=== PATIENT | male | born 1965 | race Caucasian/White ===

== ENCOUNTER 2018-03-01 22:10 | Inpatient (IN) | payer MEDICAID ==
[~2018-03-01] VITALS: Ht 177.8 cm; Wt 77.1 kg
--- NOTE | ~2018-03-01 | OP ---
PATIENT NAME: SILVANA VELASQUEZ MEDICAL RECORD: [id number] :67 LOCATION:D[id number] ADMISSION DATE:03/01/18 SURGEON: ROWDY ADDISON MD DATE OF OPERATION: 03/03/2018 SURGEON: Rowdy Addison MD ANESTHESIA: General anesthesia by Dayanara Mijares CRNA. DIAGNOSIS: Left proximal ureteral 10-mm stone. PROCEDURES: Cystoscopy, left retrograde pyelogram, left ureteroscopy and holmium laser lithotripsy, left ureteral stone extraction, left ureteral stent insertion 6-Uruguayan x 26 cm with string attached. FINDINGS: A 10-mm left ureteral stone, which is radiodense. Obstructive lateral prostatic lobes. No bladder tumors. ESTIMATED BLOOD LOSS: Minimal. CLINICAL HISTORY: This is a 53-year-old male, who had left-sided renal colic 2 years ago. He went to [facility] and he left [facility]. About a week ago, he developed more left-sided flank pain. He has been in and out of [facility] and he leaves [facility]. On 03/01/2018, he went there again due to the flank pain. They did a drug screen on him and he was positive for marijuana and methamphetamines. When he was confronted with this, he left again [facility], but eventually returned due to his severe pain. He finally had a CT scan performed, which showed a left proximal ureteral stone. Since [place] has no urologist, he was transferred here. He was admitted for pain control. He was scheduled to have left ureteroscopy and stone extraction yesterday, but because of the being backed up, his surgery was rescheduled for today. A KUB shows the stone to be radiodense. He is not allergic to any medications. He was given Ancef solution consultant to the OR. DESCRIPTION OF PROCEDURE: The patient was given induction of general anesthesia. He was then placed in dorsal lithotomy position and prepped and draped. A 21-Uruguayan cystoscope with 30-degree lens was used for visualization. Penile urethra shows no strictures. Prostatic urethra showed some lateral lobe obstruction. Going into the bladder, he has single ureteral orifices on each side. No bladder tumors were seen. Fluoroscopy revealed the radiodensity at the level of the L3 transverse process. We performed a retrograde pyelogram to confirm this. An open-ended ureteral catheter was inserted into the left ureteral orifice and diluted contrast was injected. This confirmed the location of the stone. There was proximal hydronephrosis proximal to the stone. A Sensor wire was then inserted into the left renal pelvis. The open-ended ureteral catheter was then removed entirely and a 21-Uruguayan x 4-cm ureteral dilation balloon was inserted. The left ureteral orifice was dilated to 10 atmospheres for a few seconds and then the balloon was deflated and then the balloon was removed. We switched over to the rigid ureteroscope. Going up beside the wire, we saw the stone. A 0-tip 4-wire basket was placed around the stone and we tried to pull it down. We came to ureteral edema, which prevented the stone from moving. The stone was released from the basket and the ureteroscope was removed. The balloon dilator was replaced and put up to the level of the ureteral edema. The balloon was then inflated to 8 atmospheres of pressure. This showed a persistent narrowing at the level of the ureteral OPERATIVE REPORT [id number] SILVANA VELASQUEZ edema. We then had to increase the balloon pressure to 14 before the edema completely resolved. At this point, we then swapped back to the rigid ureteroscope. We again saw the stone under direct vision and again trapped the stone within the basket. We moved it down a little past the edema zone, but again it would not pass. We then released the basket again. The 550 laser fiber was introduced and the holmium laser was used to break the stone down into smaller pieces. The basket was then introduced again and we went back and forth to remove all the little stone pieces. At the end of the procedure, there was only a some small stone debris about 1 mm in size each left. There is a small ureteral tear from where we had dilated the ureter with the ureteral dilation balloon. This will heal over the stent. Once no large fragments were left, the wire was backloaded on to the cystoscope. Over the wire, we inserted the 6-Uruguayan x 26-cm ureteral stent. Once the stent was in correct position, the wire was entirely withdrawn. The distal end of the stent was pushed into the bladder using a pusher. The bladder was then emptied through the cystoscope and then the scope was removed. The string on the distal end of the stent is maintained. It hangs out of the patient's urethra. The patient was then awakened and brought to the recovery room. The patient will be going home tomorrow morning since it is now about 9 p.m. He will be going home with a prescription for [place] 5/325 times 20 tablets and Flomax. Since he lives in [place], I will leave him instructions to remove the stent by pulling on the string in 7-10 days. He will have followup in 1 month's time to review the stone analysis. TRANSINT:[id number] Voice Confirmation ID: [id number] DOCUMENT ID: [id number] ROWDY ADDISON MD at 2123 CC: [id number] DICTATION DATE: 03/03/182049 COATING MACHINE FEEDER: 03/03/182115 ADM IN [place] [id number] [place] [address]
[2018-03-01 23:31] VITALS: BP 130/81
[2018-03-02 01:12] VITALS: BP 154/97; BMI 24.4
[2018-03-02 04:54] LABS: BASOPHILS 0.3 % (0-2); EOSINOPHILS 1.5 % (0-7); HEMATOCRIT 44.4 % (42.0-54.0); HEMOGLOBIN 15.5 g/dL (13.5-17.5); IMMATURE GRANULOCYTES 0.3 % (0-5); MCH 30.6 pg (26.0-34.0); MCHC 34.9 g/dL (31.0-37.0); MCV 87.6 fL (80.0-100.0); MEAN PLATELET VOLUME 9.3 fL (7.4-10.4); MONOCYTES 10.2 % (2-11); NEUTROPHILS 65.7 % (40-80); PLATELET COUNT 271 10x3/uL (130-400); RBC 5.07 10x6/uL (4.20-6.10); RDW 12.8 % (11.5-14.5); WBC 11.8 10x3/uL (4.8-10.8)
[2018-03-02 05:07] VITALS: BP 147/98
[2018-03-02 05:18] LABS: ANION GAP 13.8 mmol/L (8-16); BILIRUBIN - TOTAL 0.46 mg/dL (0.2-1.3); CALCIUM 8.4 mg/dL (8.5-10.1); CARBON DIOXIDE 26.1 mmol/L (21.0-32.0); CREATININE - SERUM 1.8 mg/dL (0.6-1.3); POTASSIUM - SERUM 3.9 mmol/L (3.5-5.1); PROTEIN - SERUM 7.3 g/dL (6.4-8.2)
[2018-03-02 08:48] VITALS: BP 154/98
[2018-03-02 12:44] VITALS: Ht 177.8 cm; Wt 77.1 kg
[2018-03-02 14:51] LABS: APPEARANCE CLEAR (CLEAR); COLOR YELLOW (YELLOW)
[2018-03-02 14:52] LABS: BILIRUBIN NEGATIVE (NEGATIVE); GLUCOSE NEGATIVE (NEGATIVE); KETONE NEGATIVE (NEGATIVE); NITRITE NEGATIVE (NEGATIVE); PROTEIN TRACE mg/dL (NEGATIVE); SPECIFIC GRAVITY 1.015 (1.005-1.020); UROBILINOGEN NORMAL (NORMAL); WHITE CELLS - URINE 0-5 /hpf (0-5)
[2018-03-02 14:53] LABS: BACTERIA FEW /hpf (NONE SEEN)
[2018-03-02 15:26] VITALS: BP 150/98
[2018-03-02 16:43] VITALS: BP 154/96
[2018-03-02 21:15] VITALS: BP 158/107
[2018-03-03] VITALS (10 sets, daily range): BP systolic 134–162; BP diastolic 83–109
[2018-03-03 05:54] LABS: BASOPHILS 0.3 % (0-2); EOSINOPHILS 2.6 % (0-7); HEMATOCRIT 44.9 % (42.0-54.0); HEMOGLOBIN 15.6 g/dL (13.5-17.5); IMMATURE GRANULOCYTES 0.4 % (0-5); LYMPHOCYTES 35.7 % (15-50); MCH 30.6 pg (26.0-34.0); MCHC 34.7 g/dL (31.0-37.0); MEAN PLATELET VOLUME 9.2 fL (7.4-10.4); MONOCYTES 10.6 % (2-11); NEUTROPHILS 50.4 % (40-80); PLATELET COUNT 259 10x3/uL (130-400); RDW 12.7 % (11.5-14.5); WBC 9.1 10x3/uL (4.8-10.8)
[2018-03-03 06:14] LABS: ALBUMIN 3.2 g/dL (3.4-5.0); ANION GAP 16.5 mmol/L (8-16); BILIRUBIN - TOTAL 0.47 mg/dL (0.2-1.3); CALCIUM 8.4 mg/dL (8.5-10.1); CARBON DIOXIDE 23.1 mmol/L (21.0-32.0); CREATININE - SERUM 1.5 mg/dL (0.6-1.3); POTASSIUM - SERUM 3.6 mmol/L (3.5-5.1); PROTEIN - SERUM 7.5 g/dL (6.4-8.2)
[2018-03-04] VITALS (8 sets, daily range): BP systolic 128–165; BP diastolic 86–109
[2018-03-04 07:36] LABS: BASOPHILS 0.2 % (0-2); EOSINOPHILS 0.5 % (0-7); HEMATOCRIT 42.3 % (42.0-54.0); HEMOGLOBIN 14.9 g/dL (13.5-17.5); IMMATURE GRANULOCYTES 0.2 % (0-5); LYMPHOCYTES 15.3 % (15-50); MCHC 35.2 g/dL (31.0-37.0); MCV 87.9 fL (80.0-100.0); MEAN PLATELET VOLUME 9.1 fL (7.4-10.4); MONOCYTES 7.4 % (2-11); NEUTROPHILS 76.4 % (40-80); PLATELET COUNT 247 10x3/uL (130-400); RBC 4.81 10x6/uL (4.20-6.10); RDW 12.6 % (11.5-14.5)
[2018-03-04 07:49] LABS: WBC 12.9 10x3/uL (4.8-10.8)
[2018-03-04 07:55] LABS: ALBUMIN 2.9 g/dL (3.4-5.0); ANION GAP 13.4 mmol/L (8-16); BILIRUBIN - TOTAL 0.64 mg/dL (0.2-1.3); CALCIUM 7.8 mg/dL (8.5-10.1); CARBON DIOXIDE 25.6 mmol/L (21.0-32.0); CREATININE - SERUM 1.4 mg/dL (0.6-1.3)
[2018-03-04] MEDS ORDERED: HYDROCODON-ACE1 EAC7 PO (12:02)
[2018-03-04] MEDS ORDERED: FLOMAX0.4 MG PO (12:03)
== END 2018-03-04 13:10 | disposition home or self-care (01) | DRG 660 ==
LOC: D.ER 22:10 → D.MS 23:19
PROVIDERS: Family Medicine; Urology
PROC: 0TC78ZZ Extirpation of Matter from Left Ureter, Via Natural or Artificial Opening Endoscopic (ICD-10-PCS; principal; 2018-03-03 11:15)
PROC: 0T778DZ Dilation of Left Ureter with Intraluminal Device, Via Natural or Artificial Opening Endoscopic (ICD-10-PCS; 2018-03-03 11:15)
DX: N13.2 Hydronephrosis with renal and ureteral calculous obstruction (principal); F17.213 Nicotine dependence, cigarettes, with withdrawal; S37.13XA Laceration of ureter, initial encounter; N17.9 Acute kidney failure, unspecified; F15.220 Other stimulant dependence with intoxication, uncomplicated; E86.0 Dehydration